=== PATIENT | female | born 2000 | race Caucasian/White ===

== ENCOUNTER 2023-06-27 02:35 | Outpatient (CLI) | payer MEDICAID, SELFPAY ==
[2023-06-27 14:53] LABS: Panorama Kit Sent via Fed Ex
[2023-06-27 15:13] LABS: Abs Immature Grans 0.05 10^3/uL (0.0-0.06); Absolute Basophil Count 0.04 10^3/uL (0.0-0.2); Absolute Eosinophil Count 0.02 10^3/uL (0.0-0.7); Absolute Lymphocyte Count 2.69 10^3/uL (1.2-3.4); Absolute Monocyte Count 0.46 10^3/uL (0.1-0.8); Absolute Neutrophil Count 6.88 10^3/uL (1.2-6.7); Basophils % 0.4; Eosinophils % 0.2; HCT 38.4 % (36.0-46.0); HGB 13.1 g/dL (11.2-15.7); Immature Grans % 0.5; Lymphocytes % 26.5; MCH 29.2 pg (27.0-33.0); MCHC 34.1 % (32.0-36.0); MCV 86 fL (80-95); MPV 9.6 fL (8.0-11.0); Monocytes % 4.5; Neutrophils % 67.9; Platelet Count 250 10^3/uL (130-400); RBC 4.48 10^6/uL (3.93-5.22); RDW-SD 37.3 fL; WBC 10.14 10^3/uL (4.4-10.8)
[2023-06-27 15:59] LABS: ALT 18 U/L (14-59); AST 11 U/L (15-37); Albumin 3.9 g/dL (3.4-5.0); Alkaline Phosphatase 69 U/L (46-116); Anion Gap 13.9 mmol/L (3-11); BUN 5 mg/dL (7-18); Bilirubin, Total 0.5 mg/dL (0.2-1.0); CO2 20.1 mmol/L (21.0-32.0); CREATININE 0.5 mg/dL (0.55-1.02); Calcium 9.7 mg/dL (8.5-10.1); Chloride 103 mmol/L (98-107); Estimated GFR 136.76 (mL/min/1.73m2); Glucose 77 mg/dL (74-106); Potassium 3.6 mmol/L (3.5-5.1); Sodium 137 mmol/L (136-145); Total Protein 7.8 g/dL (6.4-8.2)
[2023-06-28 07:38] LABS: Hepatitis C Ab w Rflx HCV PCR Negative (Negative)
[2023-06-28 08:21] LABS: Hepatitis B Surface Ag Negative (Negative)
[2023-06-28 09:02] LABS: HIV-1/2 Ag & Ab Screen Negative (Negative)
[2023-06-28 10:11] LABS: Rubella IgG Ab (UVM) Negative (See Note); Varicella IgG Antibody Negative (See Note)
[2023-06-30 15:33] LABS: Syphilis IgG w/Reflex Nonreactive (Nonreactive)
== END 2023-06-27 02:36 | disposition home or self-care (01) ==
LOC: LBO 02:36
PROVIDERS: Advanced Practice Midwife; Visit Provider Obstetrics & Gynecology
DX: Z34.01 Encounter for supervision of normal first pregnancy, first trimester (principal); Z3A.00 Weeks of gestation of pregnancy not specified
CPT/HCPCS: 36415; 80053; 86787; 86803; 86850; 86900; 86901; 87340; 87389; 85025; 86762; 86780

== ENCOUNTER 2023-06-27 13:32 | Outpatient (REF) | payer MEDICAID, SELFPAY ==
[2023-06-27 15:34] LABS: *AMPHETAMINES SCREEN URINE Negative (Negative); *BARBITURATES SCREEN URINE Negative (Negative); *BENZODIAZEPINES SCREEN URINE Negative (Negative); Cannabinoids THC Negative (Negative); Cocaine Screen,Urine Negative (Negative); METHADONE URINE SCREEN Negative (Negative); OPIATES URINE SCREEN Negative (Negative)
[2023-06-27 15:36] LABS: Tricyclic Antidepressants Negative (Negative)
[2023-06-29 15:42] LABS: Chlamydia Result Negative (Negative); GC Result Negative (Negative)
[2023-07-03 08:09] LABS: Buprenorphine Negative ng/mL (Cutoff: 5.0); Norbuprenorphine Negative ng/mL (Cutoff: 2.5)
== END 2023-06-27 13:33 | disposition home or self-care (01) ==
LOC: LBN 13:32
PROVIDERS: Visit Provider Advanced Practice Midwife
DX: Z34.91 Encounter for supervision of normal pregnancy, unspecified, first trimester (principal); Z3A.12 12 weeks gestation of pregnancy
CPT/HCPCS: 80307; 80348; 87491; 87591; 87086

== ENCOUNTER → 2023-08-21 02:21 | Outpatient (CLI) | payer BC, SELFPAY ==
--- NOTE | 2023-08-21 07:45 | DI.US_ITS ---
Exam(s) US OB 2-3 TRIMESTER EXAM: US OB 2-3 TRIMESTER CLINICAL HISTORY: anatomy,z34.91. TECHNIQUE: Transabdominal obstetrical ultrasound performed. COMPARISON: US POCUS EXAM from 06/26/2023 FINDINGS: Number of fetuses: One. position: Variable Placental grade: 1 Placental location: Posterior. No evidence of previa. BIOMETRIC DATA: BPD: 48mm = 20+ 4 weeks HC: 184mm = 20+ 5 weeks AC: 157mm = 20+ 6 weeks FL: 36mm = 21+4 weeks Cisterna Magna: 4.5 mm Cerebellum: 2.0 cm EFW: 400 gms 95% Composite Age: 31+ 0 weeks EDC by US: 01 Jan 2024 Heart Rate: 149BPM Amniotic fluid : Amount of fluid is within normal limits. ANATOMICAL SURVEY: Four-chambered heart: Unremarkable. LVOT: Unremarkable. RVOT: Unremarkable. Left-sided stomach: Unremarkable. urinary bladder: Unremarkable. Bilateral kidneys: Unremarkable. Three-vessel cord: Unremarkable. Cord insertion: Unremarkable. Posterior fossa:Unremarkable. ventricles: Unremarkable. nose: Unremarkable. lips: Unremarkable. palate: Unremarkable. spine: Unremarkable. Two arms and two legs: Unremarkable. IMPRESSION: 1. Single live intrauterine gestation with composite age of 31 weeks 0 days.. 2. Normal anatomic survey. DATA REPOSITORY:
== END ==
PROVIDERS: PCP Nurse Practitioner; Visit Provider Advanced Practice Midwife
DX: Z34.91 Encounter for supervision of normal pregnancy, unspecified, first trimester (principal)
CPT/HCPCS: 76805

== ENCOUNTER 2024-01-25 18:59 | Emergency (ER) | payer BC, SELFPAY ==
[2024-01-25] VITALS (16 sets, daily range): BP systolic 138–157; BP diastolic 77–88; PULSE 76–105; RESP 11–31; TEMP 36.1–36.3; O2SAT 97–100
--- NOTE | 2024-01-25 19:00 | RT.EKG_ITS ---
APPROVED REPORT Exam: Resting ECG Reason for Exam: Chest pain Patient Location: E HR:87 bpm ECG Measurements Heart Rate 87 AXIS TX 129 P 10 QRSd 106 QRS 52 QT 364 T 32 QTc 438 Conclusion Sinus rhythm...normal P axis, V-rate 60- 99
--- NOTE | 2024-01-25 19:34 | ED.GENADUL_ITS ---
Discharge Plan Disposition Patient Disposition: Home Discharge Details Clinical Impression: Chest pain, Elevated blood pressure reading Primary Care Provider: Unknown,Unknown ED Provider: Reema Duval Discharge Instructions Instructions: GERD (Gastroesophageal Reflux Disease) (ED) Additional Instructions: Please call your certified registered nurse practitioner first thing in the morning to schedule follow-up appointment on Saturday or Saturday for reassessment of your blood pressure. Your workup today was reassuring. I recommend that you use Tums as needed for heartburn symptoms. Return to emergency care if develop new chest pain, shortness of breath, severe headache, or if you are very worried and need to be rechecked again immediately HPI General Date/Time Provider Initiated Documentation: 01/25/24 19:19 . HPI Narrative: Marybeth is a 23-year-old female 2 weeks after normal full-term vaginal delivery who presents to the emergency department for evaluation of back pain accompanied by shortness of breath, diaphoresis, and pallor. She reports she had an episode 1 week ago during the middle night, lasted approximately 45 hours and resolved spontaneously. Today at 1 AM it occurred again, lasted a couple of hours. Shortness of breath was not as prominent during this episode, though she did vomit a couple of times. She has been able to tolerate p.o. since then. She denies associated fever/chills, headache, vision changes, lightheadedness, chest pain, palpitations, abdominal pain, change in bowel or bladder function, unusual vaginal bleeding, or pedal edema. Recovery from has been uneventful. She did call her certified registered nurse practitioner, told to come to the emergency department for further evaluation. No significant family medical history of connective tissue disorder or early cardiac disease/sudden at a young age. Related Data Allergies Allergy/AdvReac Type Severity Reaction Status Date / Time No Known Allergies Allergy Verified 06/27/23 13:32 General Stated Complaint: Chest Pain CRICKET: 3 Review of Systems Narrative: see HPI Exam Const General: cooperative, healthy appearing, comfortable, no acute distress, well developed and well groomed Nutritional Appearance: average body habitus Resp Effort & Inspection: normal respiratory effort and able to speak in complete sentences Auscultation: clear to auscultation bilaterally Cardio Jugular venous pressure: no JVD Rate: tachycardic Rhythm: regular rhythm Pulses: radial pulses present GI Inspection: normal to inspection, non-distended and no visible herniation Palpation: soft and nontender Auscultation: normal bowel sounds Back/Spine/Pelvis Cervical Spine: normal cervical lordosis and cervical ROM normal Thoracic/Lumbar Spine: thoracic and lumbar spine normal to inspection and No paraspinal tenderness Skin General skin exam: no rashes or lesions noted Extrem General: capillary refill normal, no pedal edema, no calf tenderness and normal gait Course Vital Signs Vital signs: Vital Signs Temperature 36.3 C L 01/25/24 19:02 Pulse 105 H 01/25/24 19:02 Respiratory Rate 15 01/25/24 19:02 Blood Pressure 157/88 H 01/25/24 19:02 Pulse Oximetry 100 01/25/24 19:02 Temperature 36.3 C L 01/25/24 19:02 Pulse 105 H 01/25/24 19:02 Respiratory Rate 15 01/25/24 19:07 Respiratory Effort Normal 01/25/24 19:07 Respiratory Depth Normal 01/25/24 19:07 Respiratory Pattern Normal 01/25/24 19:07 Blood Pressure 157/88 H 01/25/24 19:02 Blood Pressure Position Sitting 01/25/24 19:02 Pulse Oximetry 100 01/25/24 19:02 Oxygen Delivery Method Room Air 01/25/24 19:02 Oxygen Flow Rate 0 01/25/24 19:02 Pain Level 0 01/25/24 19:02 Lab/Test Results Lab/Test Results: POC- Test(urine) Negative Medical Decision Making Marybeth is a 23-year-old female 2 weeks after normal full-term vaginal delivery who presents to the emergency department for evaluation of back pain accompanied by shortness of breath, diaphoresis, and pallor. She reports she had an episode 1 week ago during the middle night, lasted approximately 45 hours and resolved spontaneously. Today at 1 AM it occurred again, lasted a couple of hours. Shortness of breath was not as prominent during this episode, though she did vomit a couple of times. She has been able to tolerate p.o. since then. She denies associated fever/chills, headache, vision changes, lightheadedness, chest pain, palpitations, abdominal pain, change in bowel or bladder function, unusual vaginal bleeding, or pedal edema. Recovery from has been uneventful. She did call her certified registered nurse practitioner, told to come to the emergency department for further evaluation. No significant family medical history of connective tissue disorder or early cardiac disease/sudden at a young age. Nonsmoker. Physical exam very reassuring. Patient is alert and interactive, no acute distress. Easy work of breathing, lung sounds clear bilaterally. Normal heart sounds. Abdomen is soft, nondistended, nontender to palpation with normoactive bowel sounds. No C-spine or T-spine step-off/tenderness/deformity. No obvious muscle spasm. Peripheral pulses intact bilaterally. DDx includes was not limited to: PE, ACS, peripartum cardiomyopathy, GERD, esophageal spasm, muscle spasm, pneumonia, anxiety I independently interpreted the following tests: CBC, CMP, troponin, and lipase all reassuring. As patient's chest pain resolved this morning, hours before arrival to the emergency department, serial troponins not performed. D-dimer was very elevated. CTA of chest performed, this was unremarkable, no acute findings. Overall workup today very reassuring. While in the emergency department blood pressure was noted to be slightly elevated above previous, 150s over 90s. Urinalysis performed (no proteinuria); no concern for HELLP or other serious complications associated with HTN. BP normalized upon discharge from dept without intervention. unclear etiology of episodic chest discomfort. Likely esophageal spasm/GERD. Recommend use of antacids as needed and follow-up with PCP/certified registered nurse practitioner for further evaluation. Reviewed red flags indicating need for return to care. Marybeth is agreeable with plan of care. Imaging Data Radiologic Study: Radiologist's impression: PROCEDURE INFORMATION: Exam: CTA Chest With Contrast Exam date and time: 01/25/2024 8:45 PM Age: 23 years old Clinical indication: Shortness of breath and other: Sudden onset midback pain; Patient HX: Sudden onset midback pain with SOB, patient post labor 2 weeks. TECHNIQUE: Imaging protocol: Computed tomographic angiography of the chest with contrast. Exam focused on the arteries. 3D rendering (Not supervised by radiologist): MIP and/or 3D reconstructed images were created by the technologist. Radiation optimization: All CT scans at this facility use at least one of these dose optimization techniques: automated exposure control; mA and/or kV adjustment per patient size (includes targeted exams where dose is matched to clinical indication); or iterative reconstruction. Contrast material: [id number]; Contrast volume: 70 ml; Contrast route: INTRAVENOUS (IV); COMPARISON: No relevant prior studies available. FINDINGS: Pulmonary arteries: Normal. No pulmonary emboli. Aorta: No aortic aneurysm or dissection. Lungs: Dependent subsegmental atelectasis. Pleural spaces: Unremarkable. No pneumothorax. No pleural effusion. Heart: Heart normal in size. Heart RV/LV ratio: 0.84. Coronary arteries: No coronary artery calcification. Lymph nodes: No adenopathy. Bones/joints: Unremarkable. No acute fracture. Soft tissues: Unremarkable. IMPRESSION: No pulmonary artery embolism demonstrated Quality:SDOH Health Related Social Needs: No Data to Display PFSH All Active Problems (Updated 01/25/24 @ 22:39 by Reema Villa) Elevated blood pressure reading (Acute) Chest pain (Acute) Rubella non-immune status, antepartum (Acute) Susceptible to varicella (non-immune), currently (Acute) (Acute) Medical History (Updated 01/25/24 @ 22:39 by Reema Villa) Family history of hypertension Family History (Updated 06/27/23 @ 13:41 by Keyana Delgado CNM) Maternal Grandfather Cancer skin Mother Depression Other Hypertension Social History (Updated 06/27/23 @ 13:42 by Keyana Delgado CNM) Smoking/Tobacco Use Status: Never Smoking risk assessment performed?: Yes Alcohol Intake: never Drug use: Never Substance use type: does not use Adopted: No Caregiver/Support person: No Foster care: No Household members: family Housing: house Number of Children: 0 number of grandchildren: 0 Communication Needs: None Education Level: vocational Do you need help understanding health information?: Never 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 Pets and animals: Yes Pets and animals: cat(s), dog(s) and other Details: rabitts Sexually active: No Do you think of yourself as: straight/heterosexual Current gender identity: female What is your relationship status?: never How often do you talk on the phone with friends or family?: twice per week How often do you get together with friends or relatives?: three or more times per week Do you belong to any clubs or organized social groups?: no Panel score (0-1 are the most socially isolated patients): 1 What type of physical activity do you participate in: walking and weight lifting History History 1 Para 0 Hx # Term Pregnancies 0 Multiple births 0 Hx # Pregnancies 0 Ectopic pregnancies 0 AB induced 0 Hx Number of Living Children 0 AB spontaneous 0
[2024-01-25 19:39] LABS: Abs Immature Grans 0.02 10^3/uL (0.0-0.06); Absolute Basophil Count 0.03 10^3/uL (0.0-0.2); Absolute Eosinophil Count 0.07 10^3/uL (0.0-0.7); Absolute Lymphocyte Count 3.96 10^3/uL (1.2-3.4); Absolute Monocyte Count 0.63 10^3/uL (0.1-0.8); Absolute Neutrophil Count 5.57 10^3/uL (1.2-6.7); Basophils % 0.3 %; Eosinophils % 0.7 %; HCT 42.7 % (36.0-46.0); HGB 14.3 g/dL (11.2-15.7); Immature Grans % 0.2 %; Lymphocytes % 38.5 %; MCH 29.5 pg (27.0-33.0); MCHC 33.5 % (32.0-36.0); MCV 88 fL (80-95); MPV 9.5 fL (8.0-11.0); Monocytes % 6.1 %; Neutrophils % 54.2 %; Platelet Count 275 10^3/uL (130-400); RBC 4.84 10^6/uL (3.93-5.22); RDW-SD 38.7 fL; WBC 10.28 10^3/uL (4.4-10.8)
[2024-01-25 19:59] LABS: ALT 29 U/L (14-59); AST 12 U/L (15-37); Albumin 3.9 g/dL (3.4-5.0); Alkaline Phosphatase 121 U/L (46-116); Anion Gap 13.6 mmol/L (3-11); BUN 6 mg/dL (7-18); Bilirubin, Total 0.3 mg/dL (0.2-1.0); CO2 26.4 mmol/L (21.0-32.0); CREATININE 0.6 mg/dL (0.55-1.02); Calcium 9.2 mg/dL (8.5-10.1); Chloride 102 mmol/L (98-107); Estimated GFR 130.07 (mL/min/1.73m2); Glucose 82 mg/dL (74-106); Lipase 27 U/L (16-77); Potassium 3.3 mmol/L (3.5-5.1); Sodium 142 mmol/L (136-145); Total Protein 8.2 g/dL (6.4-8.2); Troponin I < 50 ng/L (< or =60)
--- NOTE | 2024-01-25 20:15 | DI.CT_ITS ---
Exam(s) CT CHEST PE CTA EXAM: CT CHEST PE CTA CLINICAL HISTORY: sudden onset midback pain with SOB. TECHNIQUE: Imaging Protocol: CT angiography of the chest was performed using pulmonary embolus tenisha col. Multi planar reconstructions were performed. CONTRAST MATERIAL: Intravenous: Omnipaque 350 Contrast volume: 100 cc COMPARISON: No exams were available for comparison FINDINGS: CHEST: PULMONARY ARTERIES: There are no intraluminal filling defects to suggest acute pulmonary emboli. LUNGS: There are no infiltrates nor evidence of pulmonary infarction.. There are no pleural effusions . MEDIASTINUM: There is no hilar nor mediastinal adenopathy. Visualized thyroid unremarkable. CARDIAC: Heart size is upper normal. There is no pericardial effusion.Caliber of the thoracic aorta is within normal limits. There is no evidence of aortic dissection. There is no significant shift of the interventricular septum. PARTIALLY VISUALIZED UPPERMOST ABDOMEN: No obvious findings OSSEOUS: No significant osseous lesions.. IMPRESSION: 1. No evidence of acute pulmonary emboli. No evidence of pulmonary infarction.No pleural effusions. 2. No evidence of aortic dissection nor pericardial effusion. Diameter of the thoracic aorta is norm al. RADIATION DOSE DELIVERED: 326.83mGy.cm Total DLP DATA REPOSITORY: All CT scans at this facility are submitted to the National Radiology Data Registry (NRDR) Dose Index Registry (DIR) with the [employer] (ACR). RADIATION OPTIMIZATION: All CT scans at this facility use at least one of these dose optimization te chniques: automated exposure control; mA and/or kV adjustment per patient size (includes targeted exa ms where dose is matched to clinical indication); or iterative reconstruction.
[2024-01-25 20:19] LABS: D-Dimer 1018 ng/mlFEU (<500)
[2024-01-25] MEDS: Normal Saline - Diluent 50 ML VIAL IJ (20:43)
[2024-01-25] MEDS: Omnipaque 350 MG/ML 100 ML BTL IJ (20:44)
--- NOTE | 2024-01-25 22:05 | DI.VRAD_ITS ---
PROCEDURE INFORMATION: Exam: CTA Chest With Contrast Exam date and time: 01/25/2024 8:45 PM Age: 23 years old Clinical indication: Shortness of breath and other: Sudden onset midback pain; Patient HX: Sudden onset midback pain with SOB, patient post labor 2 weeks. TECHNIQUE: Imaging protocol: Computed tomographic angiography of the chest with contrast. Exam focused on the arteries. 3D rendering (Not supervised by radiologist): MIP and/or 3D reconstructed images were created by the technologist. Radiation optimization: All CT scans at this facility use at least one of these dose optimization techniques: automated exposure control; mA and/or kV adjustment per patient size (includes targeted exams where dose is matched to clinical indication); or iterative reconstruction. Contrast material: [id number]; Contrast volume: 70 ml; Contrast route: INTRAVENOUS (IV); COMPARISON: No relevant prior studies available. FINDINGS: Pulmonary arteries: Normal. No pulmonary emboli. Aorta: No aortic aneurysm or dissection. Lungs: Dependent subsegmental atelectasis. Pleural spaces: Unremarkable. No pneumothorax. No pleural effusion. Heart: Heart normal in size. Heart RV/LV ratio: 0.84. Coronary arteries: No coronary artery calcification. Lymph nodes: No adenopathy. Bones/joints: Unremarkable. No acute fracture. Soft tissues: Unremarkable. IMPRESSION: No pulmonary artery embolism demonstrated. Dictated and Authenticated by: Scotty Gonzáles MD. Ordering:JOHN Benavidez MD
[2024-01-25 22:43] LABS: Bilirubin Negative (Negative); Blood Small (Negative); Clarity Clear (Clear); Glucose Negative (Negative); Ketones Negative (Negative); Leukocyte Esterase Negative (Negative); Nitrite Negative (Negative); Specific Gravity <= 1.005 (1.005-1.025); Urobilinogen 0.2 mg/dL (Up to 0.2); pH 5.5 (5-8)
[2024-01-25 22:58] LABS: Bacteria Few HPF (Negative); C & S Indicated? No; Casts Negative LPF (Negative); Crystals Negative HPF (Negative); Epithelial Cells Rare HPF (Negative); Mucus Negative (Negative); WBC Negative HPF (0-5)
== END 2024-01-25 23:10 | disposition home or self-care (01) ==
PROVIDERS: Emergency Provider Nurse Practitioner Family
DX: O90.89 Other complications of the puerperium, not elsewhere classified (principal); R06.02 Shortness of breath; R07.9 Chest pain, unspecified; R03.0 Elevated blood-pressure reading, without diagnosis of hypertension
CPT/HCPCS: 71275; 80053; 82962; 83690; 93005; 99285; 81003; 81015; 84484; 85025; 85379; 93010; 99284; J3490

== ENCOUNTER 2024-01-26 20:11 | Emergency (ER) | payer BC, SELFPAY ==
[2024-01-26] VITALS (8 sets, daily range): BP systolic 148; BP diastolic 84; PULSE 74–91; RESP 16–21; TEMP 36; O2SAT 97–99
--- NOTE | 2024-01-26 20:00 | RT.EKG_ITS ---
APPROVED REPORT Exam: Resting ECG Reason for Exam: chest pain Patient Location: E HR:78 bpm ECG Measurements Heart Rate 78 AXIS ME 152 P 39 QRSd 103 QRS 65 QT 390 T 55 QTc 445 Conclusion Sinus rhythm...normal P axis, V-rate 60- 99
--- NOTE | 2024-01-26 20:22 | W.ED.GENAD ---
Discharge Plan Disposition Patient Disposition: Home Condition: Stable Discharge Details Chief Complaint: Chest Pain Clinical Impression: Chest pain Primary Care Provider: Unknown,Unknown ED Provider: Brian Plascencia Home Meds and New Rx's Prescriptions: No Action No Known Home Meds Discharge Instructions Instructions: Chest Pain (ED) Additional Instructions: Your ultrasound and blood work today was reassuring You can try taking 600 mg of ibuprofen every 8 hours for 7 to 10 days Follow-up with your primary care provider within 1 to 2 weeks If you feel more ill, have new symptoms such as high fevers or persistent vomiting return to the emergency department for reevaluation HPI General Mode of arrival: ambulatory. Date/Time Provider Initiated Documentation: 01/26/24 20:13. Limitations to Documentation: no limitations. Information obtained by: patient. History of Present Illness 23 year old F presents to the emergency department with the chief complaint of Chest pain, described as moderate, Quality is described as aching, Patient started experiencing this minute(s) (30) and it has been now resolved. No relieving factors improve symptom(s), No exacerbating factors reported . Patient notes denies fever/chills. Patient did receive the following treatments prior to arrival, none Related Data Home Medications Medication Instructions Recorded Confirmed Unknown [No Known Home Meds] 01/26/24 01/26/24 Allergies Allergy/AdvReac Type Severity Reaction Status Date / Time No Known Allergies Allergy Verified 01/26/24 20:29 General Stated Complaint: Chest Pain CRICKET: 3 Review of Systems All systems reviewed & are unremarkable except as noted in HPI and below Constitutional Constitutional: Denies chills, Denies fever(s) and Denies weakness Cardiovascular Cardiovascular: Reports chest pain Respiratory Respiratory: Denies cough Gastrointestinal Gastrointestinal: Denies abdominal pain, Denies nausea and Denies vomiting Integumentary/Breasts Skin/Breast: Denies rash Neurologic Neurologic: Denies weakness Exam Const General: no acute distress Orientation: alert HENMT Head: normal to inspection Ears: external ears normal General nose exam: external nose normal Mouth: moist mucous membranes Eyes General: appearance normal, both eyes and all related structures Neck Neck: normal visual inspection Resp Effort & Inspection: normal respiratory effort and able to speak in complete sentences Auscultation: clear to auscultation bilaterally Cardio Jugular venous pressure: no JVD Rate: regular rate Heart Sounds: no murmurs Skin General skin exam: no rashes or lesions noted Neuro General: patient alert and patient oriented x3 Extrem General: normal to inspection Psych Mental Status: mental status grossly normal Course Vital Signs Vital signs: Vital Signs Temperature 36 C L 01/26/24 20:14 Pulse 74 01/26/24 20:14 Respiratory Rate 16 01/26/24 20:14 Blood Pressure 148/84 H 01/26/24 20:14 Pulse Oximetry 99 01/26/24 20:14 Temperature 36 C L 01/26/24 20:14 Temperature Source Temporal Artery Scan 01/26/24 20:14 Pulse 74 01/26/24 20:14 Respiratory Rate 16 01/26/24 20:14 Blood Pressure 148/84 H 01/26/24 20:14 Blood Pressure Position Sitting 01/26/24 20:14 Pulse Oximetry 99 01/26/24 20:14 Oxygen Delivery Method Room Air 01/26/24 20:14 Oxygen Flow Rate 0 01/26/24 20:14 Comment no current pain, resolved in a couple minutes 01/26/24 20:14 Medical Decision Making 23-year-old female with no significant past medical history who recently gave , comes in with chest pain that started 30 minutes ago and lasted a few minutes and resolved. She had a similar episode yesterday and had reassuring workup including delta troponins that were negative and a CTA which was negative. She says all day today she felt well no difficulty breathing or fevers or chills. She is currently pain-free, speaking in full sentences in no distress. She has clear lung sounds, no JVD, no leg swelling or calf tenderness. Bedside ultrasound appears to have normal EF with no evidence of focal wall motion abnormalities or pericardial effusion. Given reassuring workup yesterday do not feel any further workup other than troponin indicated. This could be pericarditis but will check a troponin first. troponin negative, given she had two negative troponins yesterday and heart score 0 do not feel delta troponin indicated. She is still asymptomatic. Will treat as possible mild pericarditis and have her take scheduled ibuprofen for a few days. Advised to follow-up with her PCP and return precautions given Differential Diagnosis Differential Diagnosis: Pericarditis, anxiety, pleurisy ECG Data Attestation: I personally reviewed and interpreted this ECG (s) as follows: Prior ECG tracings: available for review Interpretation: sinus rate of 78 pr 152 no stemi Quality:[facility] Related Social Needs: No Data to Display PFSH All Active Problems (Updated 01/26/24 @ 21:51 by Brian Plascencia MD) Chest pain (Acute) Elevated blood pressure reading (Acute) Chest pain (Acute) Rubella non-immune status, antepartum (Acute) Susceptible to varicella (non-immune), currently (Acute) (Acute) Medical History (Updated 01/26/24 @ 21:51 by Brian Plascencia MD) Family history of hypertension Family History (Updated 06/27/23 @ 13:41 by Keyana Delgado CNM) Maternal Grandfather Cancer skin Mother Depression Other Hypertension Social History (Updated 06/27/23 @ 13:42 by Keyana Delgado CNM) Smoking/Tobacco Use Status: Never Smoking risk assessment performed?: Yes Alcohol Intake: never Drug use: Never Substance use type: does not use Adopted: No Caregiver/Support person: No Foster care: No Household members: family Housing: house Number of Children: 0 number of grandchildren: 0 Communication Needs: None Education Level: vocational Do you need help understanding health information?: Never 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 Pets and animals: Yes Pets and animals: cat(s), dog(s) and other Details: rabitts Sexually active: No Do you think of yourself as: straight/heterosexual Current gender identity: female What is your relationship status?: never How often do you talk on the phone with friends or family?: twice per week How often do you get together with friends or relatives?: three or more times per week Do you belong to any clubs or organized social groups?: no Panel score (0-1 are the most socially isolated patients): 1 What type of physical activity do you participate in: walking and weight lifting History History 1 Para 0 Hx # Term Pregnancies 0 Multiple births 0 Hx # Pregnancies 0 Ectopic pregnancies 0 AB induced 0 Hx Number of Living Children 0 AB spontaneous 0 POCUS Exam (ED) Limited Cardiac Exam DATE OF EXAM: 01/26/24 PROVIDER THAT PERFORMED THE STUDY: Brian Plascencia REASON FOR EXAM: Chest pain VISUALIZED STRUCTURES: Left ventricle and Right ventricle VIEW OBTAINED: Parasternal long-axis and Parasternal short-axis PERTINENT FINDINGS/IMPRESSION: No apparent abnormalities; No LV dysfunction Exam complete
[2024-01-26 20:59] LABS: Troponin I < 50 ng/L (< or =60)
== END 2024-01-26 22:14 | disposition home or self-care (01) ==
PROVIDERS: Emergency Provider Emergency Medicine
DX: R07.9 Chest pain, unspecified (principal); Z82.49 Family history of ischemic heart disease and other diseases of the circulatory system
CPT/HCPCS: 36415; 93005; 93308; 99285; 84484; 93010; 99284